=== PATIENT | male | born 1945 | race Caucasian/White ===

== ENCOUNTER 2017-08-14 12:20 | Inpatient (IN) | payer BC ==
[~2017-08-14] VITALS: Ht 167.6 cm; Wt 94.3 kg
[2017-08-14 12:45] VITALS: Ht 167.6 cm; Wt 94.3 kg
[2017-08-14] MEDS ORDERED: TOPROL XL25 MG PO (13:39)
[2017-08-14] MEDS ORDERED: GOOD SENSE OMEP20 MG PO (13:40)
[2017-08-14] MEDS ORDERED: NOR10T PO (13:40)
[2017-08-14] MEDS ORDERED: LIPI10 PO (13:41)
[2017-08-14] MEDS ORDERED: DIAZEPAM5 MG PO (13:43)
[2017-08-14 14:53] LABS: BASOPHIL % 0.6 % (0-2); PLATELET COUNT 238 x10^3mcL (130-400)
[2017-08-14 14:55] LABS: RED CELL DISTRIBUTION WIDTH 15.1 % (11.5-14.5)
[2017-08-14 14:57] LABS: CALCIUM 8.4 mg/dL (8.5-10.1); CARBON DIOXIDE 24.5 mmol/L (21-32); CHLORIDE SERUM 102 mmol/L (98-107); CREATININE SERUM 1.5 mg/dL (0.7-1.3); GLUCOSE SERUM 121 mg/dL (74-106); POTASSIUM SERUM 3.6 mmol/L (3.5-5.1); SODIUM SERUM 138 mmol/L (136-145)
[2017-08-14 15:02] LABS: ALKALINE PHOSPHATASE 70 U/L (46-116); ALT/SGPT 14 U/L (16-63); AST/SGOT 13 U/L (15-37); BILIRUBIN TOTAL 1.9 mg/dL (0.20-1.00); TOTAL PROTEIN, SERUM 6.6 g/dL (6.4-8.2)
[2017-08-14 15:27] LABS: microscopic required? YES; urine erythrocyte TRACE (NEGATIVE)
[2017-08-14 16:55] LABS: CHOLESTEROL/HDL RATIO 3.8; MAGNESIUM 1.7 mg/dL (1.8-2.4); PHOSPHOROUS 2.7 mg/dL (2.5-4.9)
[2017-08-14 16:57] LABS: AMPHETAMINE QUAL UR NONE DETECTED (NEG <=1000)
[2017-08-14 17:11] LABS: FREE T4 1.07 ng/dL (0.76-1.46); FREE THYROXINE INDEX 2.3 ug/dL (1.4-4.5); T4(THYROXINE) 7.5 ug/dL (4.7-13.3)
[2017-08-14 17:16] LABS: T3 TOTAL 0.87 ng/mL
[2017-08-14 17:23] VITALS: BP 104/61; BP 123/76
[2017-08-14 18:56] VITALS: BP 123/76
[2017-08-14 22:06] VITALS: BP 126/81
[2017-08-15 05:39] VITALS: BP 135/77
[2017-08-15 07:18] LABS: BASOPHIL % 0.1 % (0-2); PLATELET COUNT 240 x10^3mcL (130-400)
[2017-08-15 07:24] LABS: RED CELL DISTRIBUTION WIDTH 15.1 % (11.5-14.5)
[2017-08-15 07:50] LABS: CALCIUM 8.9 mg/dL (8.5-10.1); CARBON DIOXIDE 23.9 mmol/L (21-32); CHLORIDE SERUM 104 mmol/L (98-107); CREATININE SERUM 1.4 mg/dL (0.7-1.3); GLUCOSE SERUM 111 mg/dL (74-106); PHOSPHOROUS 2.8 mg/dL (2.5-4.9); POTASSIUM SERUM 3.8 mmol/L (3.5-5.1); SODIUM SERUM 140 mmol/L (136-145)
[2017-08-15 10:43] VITALS: BP 126/79
[2017-08-15 13:32] VITALS: BP 126/79
[2017-08-15 13:59] VITALS: BP 108/63; BP 124/63
[2017-08-15 18:37] VITALS: BP 120/65
[2017-08-15 22:13] VITALS: BP 124/69
[2017-08-16 05:04] VITALS: BP 148/77
[2017-08-16 07:36] LABS: BASOPHIL % 0.3 % (0-2); PLATELET COUNT 246 x10^3mcL (130-400); RED CELL DISTRIBUTION WIDTH 15.2 % (11.5-14.5)
[2017-08-16 07:58] LABS: CALCIUM 8.7 mg/dL (8.5-10.1); CHLORIDE SERUM 106 mmol/L (98-107); CREATININE SERUM 1.4 mg/dL (0.7-1.3); GLUCOSE SERUM 88 mg/dL (74-106); POTASSIUM SERUM 3.9 mmol/L (3.5-5.1); SODIUM SERUM 141 mmol/L (136-145)
[2017-08-16 10:38] VITALS: BP 124/76
[2017-08-16 13:03] VITALS: BP 118/70
[2017-08-16 18:08] VITALS: BP 130/73
[2017-08-16 21:50] VITALS: BP 117/69
[2017-08-17] VITALS (7 sets, daily range): BP systolic 108–162; BP diastolic 72–90
[2017-08-18 06:28] LABS: BASOPHIL % 0.5 % (0-2); PLATELET COUNT 354 x10^3mcL (130-400)
[2017-08-18 06:31] LABS: RED CELL DISTRIBUTION WIDTH 15.1 % (11.5-14.5)
[2017-08-18 06:50] VITALS: BP 143/76
[2017-08-18 09:21] VITALS: BP 142/67
[2017-08-18 13:20] VITALS: BP 116/79
[2017-08-18 16:56] VITALS: BP 116/79
[2017-08-18] MEDS ORDERED: XARELTO20 M1 PO (16:57)
[2017-08-18] MEDS ORDERED: MECLIZINE HYDRO25 M1 PO (17:06)
[2017-08-18 17:13] VITALS: BP 122/66
[2017-08-18 18:12] VITALS: BP 122/66
== END 2017-08-18 19:13 | DRG 689 ==
LOC: ED 12:20 → DU 14:48
PROVIDERS: Emergency Medicine; Family Medicine; Student in an Organized Health Care Education/Training Program
DX: N39.0 Urinary tract infection, site not specified (principal); N17.0 Acute kidney failure with tubular necrosis; I82.441 Acute embolism and thrombosis of right tibial vein; I10 Essential (primary) hypertension; E83.42 Hypomagnesemia; R73.03 Prediabetes; B96.20 Unspecified Escherichia coli [E. coli] as the cause of diseases classified elsewhere; H81.10 Benign paroxysmal vertigo, unspecified ear; E80.6 Other disorders of bilirubin metabolism; K21.9 Gastro-esophageal reflux disease without esophagitis; E78.5 Hyperlipidemia, unspecified; Z98.1 Arthrodesis status; Z90.5 Acquired absence of kidney; Z68.32 Body mass index [BMI] 32.0-32.9, adult; Z85.520 Personal history of malignant carcinoid tumor of kidney; Z91.81 History of falling
CPT/HCPCS: 82962; 83880; 84439; 97110-GP; 97530-GP; J0696; J2405; J7030; J7620; J8597; Q0092